=== PATIENT | female | born 1950 | race Caucasian/White ===

== ENCOUNTER → 2018-06-27 | Outpatient (CLI) | payer BC ==
--- NOTE | 2018-06-27 13:40 | PCVCIMAG ---
EXAM: BILATERAL CAROTID DUPLEX INDICATION: Carotid Occlusive Disease. FINDINGS: Doppler Measurements (centimeters per second): RIGHT: Peak CCA-64, Peak ECA-87, Diastolic ICA-24, Peak ICA-66, ICA/CCA Ratio-1.0. LEFT: Peak CCA-75, Peak ECA-75, Diastolic ICA-26, Peak ICA-63, ICA/CCA Ratio-0.8. RIGHT CAROTID: The carotid bulb has mild plaque. The proximal internal carotid artery shows <40% stenosis. The common carotid artery shows no significant stenosis. The external carotid artery shows no significant stenosis. LEFT CAROTID: The carotid bulb has mild plaque. The proximal internal carotid artery shows <40% stenosis. The common carotid artery shows no significant stenosis. The external carotid artery shows no significant stenosis. Antegrade flow in both vertebral arteries. IMPRESSION: <40% stenosis of the right internal carotid artery with mild plaque. <40% stenosis of the left internal carotid artery with mild plaque. LOC:[place] [id number]
== END | disposition home or self-care (01) ==
LOC: PCVCIMAG 12:45
PROVIDERS: ATTEND Internal Medicine Cardiovascular Disease
DX: I65.23 Occlusion and stenosis of bilateral carotid arteries (principal); R09.89 Other specified symptoms and signs involving the circulatory and respiratory systems
CPT/HCPCS: 93880

== ENCOUNTER → 2018-07-10 | Outpatient (CLI) | payer BC ==
[~2018-07-10] MED LIST: REGADENOSON 0.4 MG/5 ML DISP.SYRIN. IV ONE
--- NOTE | 2018-07-10 12:15 | PCVCIMAG ---
APPROVED REPORT Study performed: 07/10/2018 10:39:22 EXAM: Comprehensive 2D, Doppler, and color-flow Echocardiogram Patient Location: Echo lab Status: routine BSA: 1.56 HR: 65 bpmBP: 122/80 mmHg Rhythm: NSR Other Information Study Quality: Adequate Risk Factors: Cardiac Risk Factors: Hyperlipidemia Indications Murmur Dyspnea Rheumatoid arthritis 2D Dimensions IVSd: 11.86 (7-11mm)LVOT Diam: 19.35 (18-24mm) LVDd: 40.79 mm PWd: 8.93 (7-11mm)Ascending Ao: 31.59 (22-36mm) LVDs: 27.11 (25-40mm) Left Atrium: 32.18 (27-40mm) Aortic Root: 29.08 mm LV Single Plane 4CH: 57.70 % LV Single Plane 2CH: 41.28 % Volumes Left Atrial Volume (Systole) Single Plane 4CH: 42.99 mLSingle Plane 2CH: 41.46 mL LA ESV Index: 28.00 mL/m2 Aortic Valve AoV Peak Gonsalo.: 1.75 m/s AO Peak Gr.: 13.11 mmHg Mitral Valve E/A Ratio: 1.0 MV Decel. Time: 224.37 ms MV E Max Gonsalo.: 0.91 m/s MV A Gonsalo.: 0.95 m/s IVRT: 115.34 ms TDI E/Lateral E': 8.27E/Medial E': 10.11 Medial E' Gonsalo.: 0.09 m/s Lateral E' Gonsalo.: 0.11 m/s Pulmonary Valve PV Peak Gr.: 2.65 mmHg Pulmonary Vein P Vein S: 0.67 m/sP Vein A: 0.37 m/s P Vein D: 0.42 m/sP Vein A Dur.: 79.6 msec P Vein S/D Ratio: 1.60 Tricuspid Valve TR Peak Gonsalo.: 2.41 m/s TR Peak Gr.: 23.30 mmHg Left Ventricle The left ventricle is normal size. There is normal LV segmental wall motion. There is normal left ventricular wall thickness. Left ventricular systolic function is normal. The left ventricular ejection fraction is within the normal range. LVEF is 60%. The left ventricular diastolic function is normal. Right Ventricle The right ventricle is normal size. The right ventricular systolic function is normal. Atria The left atrium size is normal. The right atrium size is normal. Aortic Valve The aortic valve is normal in structure. No aortic regurgitation is present. There is no aortic valvular stenosis. Mitral Valve The mitral valve is normal in structure. Trace mitral regurgitation. No evidence of mitral valve stenosis. Tricuspid Valve The tricuspid valve is normal in structure. Mild tricuspid regurgitations. Pulmonary artery pressure is 31mmHg. Pulmonic Valve The pulmonary valve is normal in structure. Trace pulmonic regurgitation. Great Vessels The aortic root is normal in size. IVC is normal in size and collapses >50% with inspiration. Pericardium There is no pericardial effusion. <Conclusion> The left ventricle is normal size. LVEF is 60%. The left ventricular diastolic function is normal. The right ventricular systolic function is normal. The left atrium size is normal. The aortic valve is normal in structure. Trace mitral regurgitation. Mild tricuspid regurgitations. Pulmonary artery pressure is 31mmHg. The aortic root is normal in size. There is no pericardial effusion.
--- NOTE | 2018-07-11 17:03 | PCVCIMAG ---
APPROVED REPORT Imaging Protocol: Rest Tc-99m/Stress Tc-99m 1 day Study performed: 07/10/2018 12:22:56 Indication: Dyspnea, High Ca Score Patient Location: Out-Patient Stress Nurse: Raquel Medina RN, Doris Mishra RN [place] Tech:Meli Waters [facility] Ht: 4 ft 11 in Wt: 135 lbs BSA: 1.56 m2 HR: 70 bpm BP: 143/73 mmHg BMI: 27.2 Rhythm: Sinus Rhythm with T wave abnormalities Medical History Medical History: Hyperlipidemia, Former Smoker Medications: Prednisone, Crestor Allergies: No known drug allergies Cardiac Risk Factors: Age, FHX of CAD Pretest Chest Pain Characteristics: No chest pain Exercise History: Sedentary Resting Data Rest SPECT myocardial perfusion imaging was performed in supine position 45 minutes following the intravenous injection of 11.7 mCi of Tc-99m Sestamibi. Time of rest injection: 1145 Administration Route: IV Administration Site: Right AC Pharmacologic Stress Pharmacologic stress test was performed by injecting Regadenoson 0.4 mg IV push over 10-15 seconds immediately followed by the intravenous injection of 35 mCi of Tc-99m Sestamibi. Time of stress injection: 1300 Date: 07/10/2018 Administration Route: IV Administration Site: Right AC Gated Stress SPECT was performed 45 minutes after stress injection. The images were gated to evaluate regional wall motion and calculate left ventricular ejection fraction. Stress Test Details Stress Test: Pharmacologic stress testing performed using 0.4 mg of regadenoson per 5 mL given IV over 10 seconds. Reason for pharmacologic stress test: Rheumatoid Arthritis. HRMax Heart Rate (APMHR): 154 bpm Resting HR: 70 bpmTarget HR (85% APMHR): 130 bpm Max HR Achieved: 121 bpm % of APMHR: 78 Recovery HR: 94 bpm BP Resting BP: 173/73 mmHg Max BP: 193/83 mmHg Recovery BP: 154/75 mmHg ECG Resting ECG: Sinus Rhythm with T wave abnormalities Stress ECG: Sinus Tachycardia Recovery ECG: Sinus Rhythm Clinical Reason for Termination: Completed protocol Stress Symptoms: Abdominal discomfort, Dyspnea Exercise duration: 00 min 55 sec Symptoms resolved during recovery. Stress ECG Conclusion ECG: Non-ischemic Study Quality Study: Good Study Data Post stress, the left ventricular ejection was 77%.. SSS: 3 SRS: 5 SDS: 0 TID = 1.02. Perfusion Small sized area of moderate reversible ischemia involving the apex of the left ventricle consistent with a left anterior descending distribution. Wall Motion Normal left ventricular size and function with no regional wall motion abnormalities. Nuclear Conclusion Small sized area of moderate reversible ischemia involving the apex of the left ventricle consistent with a left anterior descending distribution. Normal left ventricular size and function with no regional wall motion abnormalities. Post stress, the left ventricular ejection was 77%. No prior study available for comparison. Interpreted by: Alberto Maier MD Electronically Approved: 07/10/2018 17:23:54 <Conclusion> ECG: Non-ischemic
== END | disposition home or self-care (01) ==
LOC: PCVCIMAG 10:43
PROVIDERS: ATTEND Internal Medicine Cardiovascular Disease
DX: R01.1 Cardiac murmur, unspecified (principal); R06.02 Shortness of breath; M06.9 Rheumatoid arthritis, unspecified; R93.1 Abnormal findings on diagnostic imaging of heart and coronary circulation; E78.5 Hyperlipidemia, unspecified; Z87.891 Personal history of nicotine dependence
CPT/HCPCS: 78452; 93017; 93306; A9500; J2785

== ENCOUNTER → 2018-07-18 | Outpatient (CLI) | payer BC ==
--- NOTE | 2018-07-18 13:06 | PCVCIMAG ---
EXAM: DUPLEX ULTRASOUND OF THE RIGHT GROIN INDICATION: Groin swelling and pain. FINDINGS: No pseudoaneurysm is present. The common femoral artery and vein are patent. No arteriovenous fistula is seen. IMPRESSION: Study is negative for pseudoaneurysm. Couple of subcutaneous hematomas are noted but no discrete pseudoaneurysms identified. LOC:[id number]
== END | disposition home or self-care (01) ==
LOC: PCVCIMAG 12:11
PROVIDERS: ATTEND Nuclear Medicine Nuclear Cardiology
DX: R10.31 Right lower quadrant pain (principal)
CPT/HCPCS: 93926

== ENCOUNTER → 2018-07-20 | Outpatient (CLI) | payer BC ==
--- NOTE | 2018-07-20 13:33 | PCVCIMAG ---
EXAM: DUPLEX ULTRASOUND OF THE RIGHT GROIN INDICATION: Groin swelling and pain. FINDINGS: No pseudoaneurysm is present. The common femoral artery and vein are patent. No arteriovenous fistula is seen. IMPRESSION: Study is negative for pseudoaneurysm. Incidental note is made of subcutaneous hematoma in the groin. This is decreased partially in size since recent study. LOC:OFFICE
== END | disposition home or self-care (01) ==
LOC: PCVCIMAG 11:57
PROVIDERS: ATTEND Internal Medicine Cardiovascular Disease
DX: R10.31 Right lower quadrant pain (principal)
CPT/HCPCS: 93926